=== PATIENT | male | born 1945 | race Caucasian/White ===

== ENCOUNTER 2017-07-14 08:42 | Emergency (ER) | payer MEDICARE, OTHER ==
[2017-07-14 09:24] VITALS: BP 145/70
[2017-07-14] MEDS ORDERED: cephALEXin 250 MG CAPSULE PO STA (10:02)
--- NOTE | 2017-07-14 10:05 | ED Physician Documentation ---
History of Present Illness - Stated complaint Stated Complaint: ELBOW SWOLLEN - Chief complaint Chief Complaint: General - History obtained from History obtained from: Patient - History of Present Illness Timing: How many weeks ago (1) - Additonal information Additional information: The patient is a 72-year-old male who presents with swelling of his left elbow. It started about 1 week ago and has been getting gradually worse. He denies any specific injury, but has noticed irritation when he rests his elbow on the arm rest of his motor vehicle. He is right-hand dominant. He denies history of similar symptoms in the past. Review of Systems Constitutional: denies: Fever Nose: denies: Congestion Respiratory: denies: Dyspnea Skin: denies: Rash Musculoskeletal: reports: Joint pain (Left elbow.). denies: Back pain Neurologic: denies: Focal weakness, Numbness, Headache PD PAST MEDICAL HISTORY - Past Medical History Endocrine/Autoimmune: None - Present Medications Home Medications: Ambulatory Orders Medication Instructions Recorded Confirmed cephALEXin [Cephalexin] 500 mg PO TID #20 tablet 07/14/17 - Allergies Allergies/Adverse Reactions: Allergies Allergy/AdvReac Type Severity Reaction Status Date / Time lisinopril Allergy Unknown Verified 07/14/17 10:20 shrimp Allergy Unknown Verified 07/14/17 10:20 - Social History Additional Social History: Visiting here from [place]. PD ED PE NORMAL - Vitals Vital signs reviewed: Yes (Mild systolic hypertension.) - General General: Alert and oriented X 3, Well developed/nourished - HEENT HEENT: Atraumatic - Cardiac Cardiac: RRR - Respiratory Respiratory: No respiratory distress - Derm Derm: No rash - Extremities Extremities: Other (There is a small abrasion on the extensor aspect of the left elbow, with associated mild tenderness to palpation. There is soft tissue swelling, without significant erythema. He has full range of motion of the elbow although complete flexion exacerbates his discomfort. Distal neurovascular is intact.) - Neuro Neuro: Alert and oriented X 3, No motor deficit, No sensory deficit Results - Vitals Vitals: Oxygen O2 Source Room air PD MEDICAL DECISION MAKING - ED course Complexity details: considered differential, d/w patient, d/w family ED course: The patient's presentation is most consistent with left olecranon bursitis. There is no clinical indication for imaging studies. Treatment in the emergency department included administration of cephalexin 500 mg orally. He is being discharged with prescription for cephalexin. I discussed with him and his daughter the expected course of illness, outpatient treatment and follow-up , as well as potentially worrisome signs or symptoms that should prompt reevaluation in the emergency department. Departure - Departure Disposition: 01 Home, Self Care Clinical Impression: Olecranon bursitis, left elbow Condition: Stable Instructions: ED Bursitis Elbow Olecranon Prescriptions: cephALEXin [Cephalexin] 500 mg PO TID #20 tablet Comments: Keep your left arm elevated as much of the time as possible. Take cephalexin 3 times daily as prescribed. You can use Tylenol or ibuprofen if needed for fever or discomfort. Follow up with your primary physician or return to the emergency department if you develop increasing pain or swelling, or otherwise worsening symptoms. Discharge Date/Time: 07/14/17 10:16
== END 2017-07-14 10:16 | disposition home or self-care (01) ==
LOC: ED 08:42
DX: M70.22 Olecranon bursitis, left elbow (principal)
CPT/HCPCS: 99283; A9270